=== PATIENT | male | born 1950 | race Caucasian/White ===

== ENCOUNTER → 2016-12-26 | Outpatient (CLI) | payer MEDICARE, MEDICAID ==
[~2016-12-26] MED LIST: BARIUM SULFATE 450ML ORAL SUSP ONE; CHOL100030 PO; CINN1CAP PO; GLUC1TAB35 PO; IOHEXOL-300 100 ML BOTTLE ONE; SODIUM CHLORIDE 0.9% 10ML VIAL ONE; TENO300T PO
== END | disposition home or self-care (01) ==
LOC: CT 09:11
PROVIDERS: ATTEND Internal Medicine Gastroenterology
DX: B19.10 Unspecified viral hepatitis B without hepatic coma (principal); R16.0 Hepatomegaly, not elsewhere classified; J98.11 Atelectasis; K74.69 Other cirrhosis of liver
CPT/HCPCS: 74170; A4216; Q9967

== ENCOUNTER → 2017-04-28 | Outpatient (CLI) | payer MEDICARE, MEDICAID ==
[~2017-04-28] MED LIST changes: -BARIUM SULFATE 450ML ORAL SUSP ONE; -CHOL100030 PO; +CHOL100036 PO; -IOHEXOL-300 100 ML BOTTLE ONE; -SODIUM CHLORIDE 0.9% 10ML VIAL ONE; -TENO300T PO; +VIRE PO
== END | disposition home or self-care (01) ==
LOC: US 07:29
PROVIDERS: ATTEND Internal Medicine Gastroenterology
DX: B19.10 Unspecified viral hepatitis B without hepatic coma (principal); K82.4 Cholesterolosis of gallbladder; K74.60 Unspecified cirrhosis of liver; N18.9 Chronic kidney disease, unspecified
CPT/HCPCS: 76700

== ENCOUNTER 2019-09-24 06:42 | Emergency (ER) | payer OTHER, MEDICAID ==
[~2019-09-24] VITALS: Ht 170.2 cm; Wt 74.0 kg
[2019-09-24] MEDS ORDERED: TETANUS, DIPHTHERIA, PERTUSSIS VAC/PF 0.5ML (>7YR OLD) IM ONE (08:00)
[2019-09-24 08:25] VITALS: BP 138/81
[2019-09-24] MEDS ORDERED: HYDROCODONE/ACETAMINOPHEN 5/325MG TABLET PO ONE (08:30)
[2019-09-24] MEDS ORDERED: ONDANSETRON 4MG ODT PO ONE (08:30)
== END 2019-09-24 08:25 | disposition home or self-care (01) ==
LOC: ER 06:42
DX: S60.021A Contusion of right index finger without damage to nail, initial encounter (principal); Z79.899 Other long term (current) drug therapy; Z95.2 Presence of prosthetic heart valve; Z98.890 Other specified postprocedural states; X58.XXXA Exposure to other specified factors, initial encounter; Y93.89 Activity, other specified; Y92.89 Other specified places as the place of occurrence of the external cause; Y99.8 Other external cause status
CPT/HCPCS: 29130; 73140; 90471; 90715; 99283; Q0162